=== PATIENT | female | born 1965 | race Caucasian/White ===

== ENCOUNTER 2016-12-30 11:33 | Emergency (ER) | payer BC ==
--- NOTE | ~2016-12-30 | CR181 ---
[facility] A Service of [facility] & [facility] RADIOLOGY TEXT RESULTS PATIENT: AMBREEN HAJI LOCATION: [facility] : 61 UNIT #: [id number] AGE: [address]: MICHAELA AGUILAR SEX: F ORDER DR: [id number] [facility] [address] [place], [place] [address] [id number] E MR#: [id number] Acc #: [id number] NAME: AMBREEN HAJI. : 1965 SEX: F STUDY DATE/TIME: 12/30/2016 11:33 UNIT: [facility] ROOM: STUDY DESCRIPTION: CR Lumbar Spine 2 or 3 Views Attending Physician: Michaela Aguilar Aprn Ordering Physician: Michaela Aguilar Aprn Primary Care Physician: Marty Michel M.D. MEDICAL IMAGING REPORT This report is preliminary unless electronic signature is present EXAM Lumbar spine 12/30/2016. HISTORY 51-year-old female, with low back pain status post fall 3 weeks ago. COMPARISON Lumbar spine 03/29/2012. FINDINGS 3 views of the lumbar spine and straight no acute fracture or subluxation. Vertebral body heights and alignment are normally maintained. Disc spaces and facets are unremarkable. Sacrum and SI joints intact. IMPRESSION Unremarkable lumbar spine. Dictated by... Prabhjot Barrientos M.D. THIS IS AN ELECTRONICALLY VERIFIED REPORT Prabhjot Barrientos M.D. at 12/31/2016 8:14 AM Lora TD: 12/30/2016 16:08 JOB #: [id number] MEDICAL IMAGING REPORT Page 1 of 1 COPY
--- NOTE | ~2016-12-30 | CR133 ---
[facility] A Service of [facility] RADIOLOGY TEXT RESULTS PATIENT: AMBREEN HAJI LOCATION: [facility] : 61 UNIT #: [id number] AGE: [address]: MICHAELA AGUILAR SEX: F ORDER DR: [id number] [facility] [address] [place], [place] [address] [id number] E MR#: [id number] Acc #: [id number] NAME: AMBREEN HAJI. : 1965 SEX: F STUDY DATE/TIME: 12/30/2016 11:49 UNIT: [facility] ROOM: STUDY DESCRIPTION: CR Forearm 2 View Rt Attending Physician: Michaela Aguilar Aprn Ordering Physician: Michaela Aguilar Aprn Primary Care Physician: Marty Michel M.D. MEDICAL IMAGING REPORT This report is preliminary unless electronic signature is present EXAM Right forearm 12/30/2016. HISTORY Right forearm pain status post fall 3 weeks ago. COMPARISON None. FINDINGS 2 views of the right forearm demonstrate no acute fracture or dislocation. Soft tissues are unremarkable. IMPRESSION Unremarkable right forearm. Dictated by... Prabhjot Barrientos M.D. THIS IS AN ELECTRONICALLY VERIFIED REPORT Prabhjot Barrientos M.D. at 12/31/2016 8:14 AM Lora TD: 12/30/2016 16:10 JOB #: [id number] MEDICAL IMAGING REPORT Page 1 of 1 COPY
--- NOTE | ~2016-12-30 | CR94 ---
[facility] A Service of [facility] & [facility] RADIOLOGY TEXT RESULTS PATIENT: AMBREEN HAJI LOCATION: [facility] : 61 UNIT #: [id number] AGE: [address]: MICHAELA AGUILAR SEX: F ORDER DR: [id number] [facility] [address] [place], [place] [address] [id number] E MR#: [id number] Acc #: [id number] NAME: AMBREEN HAJI. : 1965 SEX: F STUDY DATE/TIME: 12/30/2016 11:51 UNIT: [facility] ROOM: STUDY DESCRIPTION: CR Elbow Min 3 Views Rt Attending Physician: Michaela Aguilar Aprn Ordering Physician: Michaela Aguilar Aprn Primary Care Physician: Marty Michel M.D. MEDICAL IMAGING REPORT This report is preliminary unless electronic signature is present EXAM Right elbow 12/30/2016. HISTORY Right elbow pain status post fall 3 weeks ago. COMPARISON None. FINDINGS 3 views of the right elbow demonstrate no acute fracture or dislocation. No joint effusion. Soft tissues are unremarkable. IMPRESSION Unremarkable right elbow. Dictated by... Prabhjot Barrientos M.D. THIS IS AN ELECTRONICALLY VERIFIED REPORT Prabhjot Barrientos M.D. at 12/31/2016 8:14 AM Lora TD: 12/30/2016 16:11 JOB #: [id number] MEDICAL IMAGING REPORT Page 1 of 1 COPY
--- NOTE | ~2016-12-30 | CR126 ---
[facility] A Service of [facility] & [facility] RADIOLOGY TEXT RESULTS PATIENT: AMBREEN HAJI LOCATION: [facility] : 61 UNIT #: [id number] AGE: [address]: MICHAELA AGUILAR SEX: F ORDER DR: [id number] [facility] [address] [place], [place] [address] [id number] E MR#: [id number] Acc #: [id number] NAME: AMBREEN HAJI. : 1965 SEX: F STUDY DATE/TIME: 12/30/2016 11:44 UNIT: [facility] ROOM: STUDY DESCRIPTION: CR Foot Complete Min 3 View Lt Attending Physician: Michaela Aguilar Aprn Ordering Physician: Michaela Aguilar Aprn Primary Care Physician: Marty Michel M.D. MEDICAL IMAGING REPORT This report is preliminary unless electronic signature is present EXAM Left foot 12/30/2016. HISTORY Left foot pain status post fall 3 weeks ago. COMPARISON Left foot 06/05/2013. FINDINGS 3 views of the left foot demonstrate no acute fracture or dislocation. Soft tissues are unremarkable. IMPRESSION Unremarkable left foot. Dictated by... Prabhjot Barrientos M.D. THIS IS AN ELECTRONICALLY VERIFIED REPORT Prabhjot Barrientos M.D. at 12/31/2016 8:14 AM Lora TD: 12/30/2016 16:09 JOB #: [id number] MEDICAL IMAGING REPORT Page 1 of 1 COPY
--- NOTE | ~2016-12-30 | CR20 ---
[facility] A Service of [facility] RADIOLOGY TEXT RESULTS PATIENT: AMBREEN HAJI LOCATION: [place] : 61 UNIT #: [id number] AGE: [address]: MICHAELA AGUILAR SEX: F ORDER DR: [id number] [facility] [address] [place], [place] [address] [id number] E MR#: [id number] Acc #: [id number] NAME: AMBREEN HAJI. : 1965 SEX: F STUDY DATE/TIME: 12/30/2016 11:45 UNIT: [facility] ROOM: STUDY DESCRIPTION: CR Ankle Min 3 Views Lt Attending Physician: Michaela Aguilar Aprn Ordering Physician: Michaela Aguilar Aprn Primary Care Physician: Marty Michel M.D. MEDICAL IMAGING REPORT This report is preliminary unless electronic signature is present EXAM Left ankle. DATE OF EXAM 12/30/2016 HISTORY Left ankle pain status post fall 3 weeks ago. COMPARISON Left foot, 06/05/2013. FINDINGS 3 views of the left ankle demonstrate no acute fracture or dislocation. Ankle mortise symmetric. Talar dome intact. Soft tissues are unremarkable. IMPRESSION Unremarkable left ankle. Dictated by... Prabhjot Barrientos M.D. THIS IS AN ELECTRONICALLY VERIFIED REPORT Prabhjot Barrientos M.D. at 12/31/2016 8:14 AM SANDY/blaise TD: 12/30/2016 16:31 JOB #: [id number] MEDICAL IMAGING REPORT Page 1 of 1 COPY
[~2016-12-30 11:33] MED LIST: FLEXERIL10 MG PO; MAGNESIUM500 MG PO; MILK THISTLE PO; PROGESTERONE100 MG PO; TESTOSTERONE; VIT B-12; VITAMIN D35000 UNIT PO; VIVELLE-DO1 PATCH.B1 TD; XANAX0.5 M1 PO
== END 2016-12-30 13:22 | disposition home or self-care (01) ==
LOC: CFTX 11:33
DX: S39.012A Strain of muscle, fascia and tendon of lower back, initial encounter (principal); S50.01XA Contusion of right elbow, initial encounter; S90.02XA Contusion of left ankle, initial encounter; F17.210 Nicotine dependence, cigarettes, uncomplicated; K21.9 Gastro-esophageal reflux disease without esophagitis; W10.9XXA Fall (on) (from) unspecified stairs and steps, initial encounter
CPT/HCPCS: 72100; 73080; 73090; 73610; 73630; 96372; 99284; J1885

== ENCOUNTER 2017-02-14 17:31 | Emergency (ER) | payer BC | END 2017-02-14 21:32 | disposition left against medical advice (07) | LOC: CED 17:31 | DX: Z53.21 Procedure and treatment not carried out due to patient leaving prior to being seen by health care provider (principal) ==

== ENCOUNTER → 2017-04-06 | Day surgery (SDC) | payer BC ==
[~2017-04-06] VITALS: Ht 170.2 cm; Wt 122.5 kg
--- NOTE | ~2017-04-06 | CO ---
Unit #: [id number] #: [id number] Patient: AMBREEN HAJI [id number] [address] [place], [place] [address] [id number] E MR#: [id number] NAME: AMBREEN HAJI. ROOM: Age: 51 Sex: F Admission Date: 04/06/2017 : 1965 Attending Physician: Thaddeus Dueñas M.D. Primary Care Physician: Marty Michel M.D. Consultation Date: 04/06/2017 CONSULTATION REPORT BRIEF HISTORY The patient is a 51-year-old lady, who presents with a 2-day history of periumbilical and now right lower quadrant abdominal pain, some nausea. No vomiting. No diarrhea. No change in bowel habits noted. History of similar type pain. The pain is right lower quadrant originally was intermittent now consistent. She has had no fevers or chills. PAST MEDICAL HISTORY She has had a lap band. Does have a history of diabetes. MEDICATIONS Please see medication list. SOCIAL HISTORY No smoking. No alcohol. FAMILY HISTORY Negative for GI malignancy. REVIEW OF SYSTEMS No cardiopulmonary complaints at this time. Else, 10 systems reviewed and negative. PHYSICAL EXAMINATION GENERAL: She is awake, alert, appropriate, currently afebrile. HEENT: Unremarkable. NECK: Supple. No JVD. Trachea midline. LUNGS: Clear to auscultation. Bilateral breath sounds symmetric. CARDIOVASCULAR: Regular rate and rhythm. ABDOMEN: Soft. It is nontender and nondistended. I palpate no masses. No hepatosplenomegaly. She is tender in the right lower quadrant McBurney point. There is no rebound. EXTREMITIES: No clubbing, cyanosis, or edema. DIAGNOSTIC STUDIES LABORATORY RESULTS: Show white count 11.3. IMAGING STUDIES: CT scan shows pericecal inflammation at the appendix. ASSESSMENT Appendicitis. PLAN Recommend laparoscopic appendectomy. Discussed risks and benefits in Unit #: [id number] #: [id number] Patient: AMBREEN HAJI detail. We will proceed. Dictated by... Og Parish M.D. NATALIE/carlita TD: 04/06/2017 14:04 JOB #: [id number] CONSULTATION REPORT Page 1 of 1 X Og Parish MD CONSULTATION REPORT
--- NOTE | ~2017-04-06 | CT2 ---
[facility] A Service of [facility] & [facility] RADIOLOGY TEXT RESULTS PATIENT: AMBREEN HAJI LOCATION: [facility] : 61 UNIT #: [id number] AGE: [address]: Thaddeus Dueñas MD SEX: F ORDER DR: [id number] [facility] [address] [place], [place] [address] [id number] E MR#: [id number] Acc #: [id number] NAME: AMBREEN HAJI. : 1965 SEX: F STUDY DATE/TIME: 04/06/2017 10:14 UNIT: [facility] ROOM: STUDY DESCRIPTION: CT Abd and Pelv W Cont Attending Physician: Thaddeus Dueñas M.D. Ordering Physician: Thaddeus Dueñas M.D. Primary Care Physician: Marty Michel M.D. MEDICAL IMAGING REPORT This report is preliminary unless electronic signature is present EXAM CT abdomen and pelvis with contrast. HISTORY 51-year-old female with generalized abdominal pain for 4 days. Nausea and diarrhea. TECHNIQUE Axial images performed through the abdomen and pelvis following IV and oral contrast. Multiplanar reconstructions are reviewed. This CT exam was performed with one or more of the following radiation dose reduction techniques: automatic exposure control, adjustment of mA and/or kV according to patient size, and iterative reconstruction. FINDINGS ABDOMEN: Lung bases unremarkable. Liver and spleen appear normal. Gallbladder is surgically absent. Pancreas and adrenal glands are unremarkable. Probable small right renal cortical cyst. GI tract remarkable for postsurgical changes from Lap-Band surgery with the device in expected position. Small bowel unremarkable. The appendix is abnormal measuring over 9 mm in greatest transverse dimensions with some very subtle periappendiceal inflammatory change, particularly at its origin from the cecum. Findings would be concerning for early or indolent appendicitis. Minimal periappendiceal inflammatory change. No perforation or abscess. Colon unremarkable. PELVIS: Bladder, uterus, and adnexa unremarkable. Tubal ligation clips noted. Osseous structures unremarkable. Mild obesity. IMPRESSION 1. Abnormal appendix with a diffusely thickened appendix with some periappendiceal inflammatory change, particularly at its origin at [facility] A Service of [facility] & [facility] RADIOLOGY TEXT RESULTS PATIENT: AMBREEN HAJI LOCATION: [facility] : 61 UNIT #: [id number] AGE: [address]: Thaddeus Dueñas MD SEX: F ORDER DR: the medial cecum. Findings are concerning for early appendicitis. No perforation or abscess. 2. Status post Lap-Band surgery with device in expected position. Dictated by... Malvin Cronin M.D. THIS IS AN ELECTRONICALLY VERIFIED REPORT Malvin Cronin M.D. at 04/06/2017 4:48 PM MAHAMED/rosa TD: 04/06/2017 15:12 JOB #: [id number] MEDICAL IMAGING REPORT Page 1 of 1 COPY
--- NOTE | ~2017-04-06 | OR ---
Unit #: [id number] #: [id number] Patient: AMBREEN HAJI [id number] [address] [address] [id number] E MR#: [id number] NAME: AMBREEN HAJI ROOM: Date of Procedure: 04/06/2017 Admission Date: 04/06/2017 Surgeon: Og Parish M.D. : 1965 Attending Physician: Thaddeus Dueñas M.D. Primary Care Physician: Marty Michel M.D. OPERATIVE REPORT PREOPERATIVE DIAGNOSIS Appendicitis. POSTOPERATIVE DIAGNOSIS Appendicitis. PROCEDURE PERFORMED Laparoscopic appendectomy. ASSISTANT Cr Quinonez M.D. ANESTHESIA General anesthesia. ESTIMATED BLOOD LOSS Minimal. IV FLUIDS 800 crystalloid. COMPLICATIONS None. INDICATIONS FOR PROCEDURE The patient is a 51-year-old, who presents with signs and symptoms consistent with appendicitis. She presents for laparoscopic appendectomy. DESCRIPTION OF PROCEDURE The patient was taken to the operating theater and placed in a supine position. General anesthesia was induced. The abdomen was prepped and draped. A 5-mm Optiview trocar was placed in left of the umbilicus. The abdomen was insufflated to 15 mmHg with CO2. Under direct vision, I placed a right lower quadrant 10 mm, left lower quadrant 5 mm. General inspection of the abdomen revealed some adhesions in the right lower quadrant. These were taken down. I saw no free fluid. The cecum was identified and mobilized the right colon using Bovie electrocautery. I then identified the appendix. This was grossly inflamed, but not perforated. I mobilized the retroperitoneal connections. I fired a WILLIAMS stapler across the base of the appendix. Hemostasis was adequate. I placed in an Endobag and then removed via the 10 mm port. I saw no other abnormalities. The fascia was closed with 0 Vicryl and skin with 4-0 Unit #: [id number] #: [id number] Patient: AMBREEN HAJI Vicryl. The patient tolerated the procedure well and was sent to the recovery room in good condition. Dictated by... Rajat Guillory/carlita TD: 04/06/2017 14:30 JOB #: [id number] OPERATIVE REPORT Page 1 of 1 X Og Parish MD PROCEDURE OPERATIVE NOTE
[2017-04-06 09:16] LABS: URINE SOURCE CLEAN CATCH
[2017-04-06 09:23] LABS: URINE APPEARANCE CLEAR; URINE BILIRUBIN NEG (NEG); URINE BLOOD TRACE (NEG); URINE COLOR YELLOW; URINE GLUCOSE NEG (NEG); URINE KETONE NEG (NEG); URINE LEUKOCYTE ESTERASE NEG (NEG); URINE NITRATE NEG (NEG); URINE PH 5.5 (5-8); URINE PROTEIN NEG (NEG); URINE SPECIFIC GRAVITY 1.007 (1.003-1.035); URINE UROBILINOGEN 0.2 MG/DL (NEG)
[2017-04-06 09:23] LABS: BASOPHIL% 0.4 % (0-2.5); EOSINOPHIL# 0.3 X10e3 (0-0.7); EOSINOPHIL% 2.3 % (0.0-7.0); HEMATOCRIT 44.9 % (35.0-45.0); LYMPHOCYTE# 2.3 X10e3 (1.0-3.5); LYMPHOCYTE% 20.3 % (17.0-45.0); MEAN CELL VOLUME 89.6 FL (83-96); MEAN CORPUSCULAR HEMOGLOBIN 29.9 PG (28-34); MEAN CORPUSCULAR HGB CONC 33.4 g/dL (30-36); MEAN PLATELET VOLUME 8.4 FL (6.5-11.5); MONOCYTE# 0.6 X10e3 (0-1.0); MONOCYTE% 4.9 % (3.0-12.0); NEUTROPHIL# 8.2 X10e3 (1.5-7.1); NEUTROPHIL% 72.1 % (40-75); PLATELET COUNT 318 X10e3 (140-420); RED BLOOD COUNT 5.01 X10e (3.90-5.30); RED CELL DISTRIBUTION WIDTH 13.4 % (11.0-15.5); WHITE BLOOD COUNT 11.3 X10e3 (4.0-10.5)
[2017-04-06 09:26] LABS: URINE BACTERIA AUWI NEG (NEGATIVE); URINE SQUAMOUS EPITHELIAL CELL NONE SEEN /[HPF]; UWBCS1 AUWI 0-2 (0-5)
[2017-04-06 09:27] LABS: CULTURE INDICATED? NO
[2017-04-06 09:35] LABS: DIFF IND NO
[2017-04-06 09:57] LABS: ALBUMIN SERUM 4.3 g/dL (3.5-5.0); ALKALINE PHOSPHATASE 117 U/L (32-92); ALT (SGPT) 22 U/L (10-40); AMYLASE 27 U/L (0-46); AST (SGOT) 21 U/L (10-42); BILIRUBIN,TOTAL 0.2 mg/dL (0.2-2.0); BLOOD UREA NITROGEN 11 mg/dL (9-23); BUN/CREATININE RATIO 13.75; CALCIUM SERUM 9.7 mg/dL (8.4-10.2); CARBON DIOXIDE 28 mmol/L (22-31); CHLORIDE 105 mmol/L (100-111); CREATININE SERUM 0.8 mg/dL (0.6-1.4); GLOM FILT RATE Estimated 84.2 mL/min (>60); GLUCOSE FASTING 100 mg/dL (70-110); LIPASE 24 U/L (22-51); POTASSIUM 4.1 mmol/L (3.5-5.1); PROTEIN TOTAL SERUM 8.3 g/dL (6.0-8.3); SODIUM 141 mmol/L (135-145)
[2017-04-06 09:58] LABS: BILIRUBIN, DIRECT <0.1 mg/dL (0.0-0.2); BILIRUBIN,INDIRECT 0.1 mg/dL (0.0-0.9)
== END | disposition home or self-care (01) ==
LOC: CED 08:07 → CSUR 11:54
PROVIDERS: Emergency Medicine
DX: K35.80 Unspecified acute appendicitis (principal); Z98.84 Bariatric surgery status
CPT/HCPCS: 36415; 74177; 80048; 80076; 81003; 82150; 83690; 85025; 88304; 99285; J0330; J1644; J2250; J2405; J2543; J2710; J3010; Q9967